=== PATIENT | female | born 1955 | race Caucasian/White ===

== ENCOUNTER 2021-08-08 15:22 | Emergency (ER) | payer BC ==
[~2021-08-08] VITALS: Ht 160 cm; Wt 108.9 kg
--- NOTE | 2021-08-08 16:20 | NUR ---
Dr Sotomayor at the bedside for MSE.
[2021-08-08] MEDS ORDERED: CLIN300C12 PO (16:30)
[2021-08-08 17:24] VITALS: BP 162/78
--- NOTE | 2021-08-08 17:25 | NUR ---
Patient discharged to home in stable condition. Written and verbal after care instructions given. Patient verbalizes understanding of instructions. Stressed follow up or return to ER for worsening s/s.
== END 2021-08-08 17:26 | disposition home or self-care (01) ==
LOC: ER 15:22
DX: L03.116 Cellulitis of left lower limb (principal); I87.2 Venous insufficiency (chronic) (peripheral); E66.9 Obesity, unspecified; Z68.41 Body mass index [BMI] 40.0-44.9, adult; I10 Essential (primary) hypertension; Z91.013 Allergy to seafood
CPT/HCPCS: A4663